=== PATIENT | female | born 1995 | race Two or more races ===

== ENCOUNTER 2023-06-28 11:20 | Emergency (ER) | payer OTHER ==
[~2023-06-28] VITALS: Ht 167.6 cm; Wt 59.0 kg
[2023-06-28 13:08] LABS: HEMATOCRIT 44.7 % (36.0-45.00); HEMOGLOBIN 14.8 g/dL (12.0-15.00); MEAN CELL VOLUME 84.4 fL (80.00-100.00); MEAN CORPUSCULAR HGB CONC 33.2 g/dl (32.0-36.0); PLATELET COUNT 314 K/uL (150-450); RED CELL DISTRIBUTION WIDTH 13.6 % (11.5-14.5)
[2023-06-28 13:30] LABS: CALCIUM 8.9 mg/dL (8.5-10.1); CREATININE SERUM 0.63 mg/dL (0.55-1.02); GFR 110.95; POTASSIUM 3.11 mEq/L (3.5-5.1)
[2023-06-28 13:50] LABS: URINE APPEARANCE Cloudy; URINE BILIRRUBIN Negative (NEGATIVE); URINE BLOOD Small; URINE COLOR Dark Yellow; URINE GLUCOSE Negative (NEGATIVE); URINE LEUKOCYTE Trace; URINE NITRATE Negative; URINE PROTEIN 30 (NEGATIVE)
[2023-06-28 13:54] LABS: URINE BACTERIA 7023.1 uL (0.0-1933); URINE EPITHELIAL CELLS 59.8 uL (0.0-38.8); URINE WBC 127.8 uL (0.0-23.2)
== END 2023-06-28 17:57 | disposition home or self-care (01) ==
LOC: ER 11:20
PROVIDERS: Emergency Medicine
DX: K52.89 Other specified noninfective gastroenteritis and colitis (principal); E86.0 Dehydration
CPT/HCPCS: 36415; 96365; 99283; J2405; J3490